=== PATIENT | female | born 1965 | race Caucasian/White ===

== ENCOUNTER → 2021-07-20 | Outpatient (CLI) | payer BC, OTHER ==
--- NOTE | 2021-07-21 04:22 | REP ---
INDICATION: PAIN/ CARPAL TUNNEL COMPARISON: None. TECHNIQUE: AP, lateral, bilateral oblique views right hand. FINDINGS: No evidence for acute fracture or dislocation. Age-related degenerative changes involving the metacarpophalangeal and interphalangeal joints including subchondral sclerosis, joint space narrowing, and early marginal spurring. Findings are most pronounced at the 1st MCP and IP joint. Wrist demonstrates cortical irregularity, joint space narrowing, mild chronic subluxation and carpal erosive changes at the 1st carpometacarpal joint which appear chronic. IMPRESSION: 1. Relatively age-related changes involving the interphalangeal joints and 1st MCP joint. 2. Chronic advanced changes at the 1st carpometacarpal joint. <Electronically signed by Saad Stuart > 07/21/21 [id number]
--- NOTE | 2021-07-21 04:23 | REP ---
INDICATION: PAIN/ CARPAL TUNNEL COMPARISON: None. TECHNIQUE: AP, lateral, coned-down views of the lumbar spine. FINDINGS: Three views of the lumbosacral spine demonstrate satisfactory alignment and lordosis without acute fracture / compression injury or subluxation. Relatively mild appearing degenerative changes include endplate sclerosis with marginal spurring and mild disc space narrowing most notably involving L5-S1 and L3-4. IMPRESSION: 1. No acute fracture / compression injury or subluxation. 2. Mild multilevel degenerative changes. <Electronically signed by Saad Stuart > 07/21/21 0411
== END ==
LOC: M PLAIMG 12:45
PROVIDERS: ATTEND Internal Medicine
DX: G56.01 Carpal tunnel syndrome, right upper limb (principal); M85.841 Other specified disorders of bone density and structure, right hand; M18.11 Unilateral primary osteoarthritis of first carpometacarpal joint, right hand; M48.07 Spinal stenosis, lumbosacral region; M48.061 Spinal stenosis, lumbar region without neurogenic claudication; M25.78 Osteophyte, vertebrae

== ENCOUNTER 2023-04-03 14:32 | Emergency (ER) | payer BC, OTHER ==
[~2023-04-03] VITALS: Ht 167.6 cm; Wt 74.7 kg
[2023-04-03 14:33] VITALS: TEMP 98.2; O2SAT 99
[2023-04-03 14:39] VITALS: BP 180/96
[2023-04-03] MEDS ORDERED: METO1TAB32 (14:42)
== END 2023-04-03 17:12 | disposition left against medical advice (07) ==
LOC: M ED 14:32
DX: Z53.21 Procedure and treatment not carried out due to patient leaving prior to being seen by health care provider (principal)